=== PATIENT | female | born 1985 | race Caucasian/White ===

== ENCOUNTER 2019-07-05 08:39 | Emergency (ER) | payer OTHER ==
[2019-07-05 08:43] VITALS: BP 114/81; PULSE 90; RESP 18
[2019-07-05 09:02] VITALS: TEMP 98.5
[2019-07-05] MEDS ORDERED: ACET/COD 300 MG/30 MG STARTER PACK 6 TAB BTL PO STA (09:13)
--- NOTE | 2019-07-05 09:13 | ED ---
ENT HPI - General Chief complaint: Dental/Oral Stated complaint: Dental abscess Time Seen by Provider: 07/05/19 08:48 Source: patient, RN notes reviewed Mode of arrival: ambulatory Limitations: no limitations - History of Present Illness Initial comments: 34-year-old female presents emergency from chief complaint left-sided facial swelling, dental pain. Patient states that she's taken 3 doses amoxicillin. Patient does not improve. She is actually worsen. Patient reports no fevers or chills she states it is painful no pain medications currently. Patient has not follow-up with dentist. - Related Data Previous Rx's Medication Instructions Recorded Clindamycin HCl 300 mg PO Q6HR #40 cap 07/05/19 Ibuprofen [Motrin] 600 mg PO Q8HR PRN #30 tab 07/05/19 Allergies Allergy/AdvReac Type Severity Reaction Status Date / Time No Known Allergies Allergy Verified 07/05/19 08:43 Review of Systems ROS Statement: Those systems with pertinent positive or pertinent negative responses have been documented in the HPI. ROS Other: All systems not noted in ROS Statement are negative. Past Medical History Past Medical History: No Reported History History of Any Multi-Drug Resistant Organisms: None Reported Past Surgical History: Tubal Ligation Past Psychological History: No Psychological Hx Reported Smoking Status: Current every day smoker Past Alcohol Use History: None Reported Past Drug Use History: Marijuana General Exam Limitations: no limitations General appearance: alert, in no apparent distress Head exam: Present: atraumatic, normocephalic, normal inspection Eye exam: Present: normal appearance, PERRL, EOMI. Absent: scleral icterus, conjunctival injection, periorbital swelling ENT exam: Present: mucous membranes moist, TM's normal bilaterally, normal external ear exam. Absent: normal oropharynx (Dental fillings, cavities noted, no drainable abscess, left-sided facial swelling) Neck exam: Present: normal inspection, full ROM. Absent: tenderness, meningismus, lymphadenopathy Respiratory exam: Present: normal lung sounds bilaterally. Absent: respiratory distress, wheezes, rales, rhonchi, stridor Cardiovascular Exam: Present: regular rate, normal rhythm, normal heart sounds. Absent: systolic murmur, diastolic murmur, rubs, gallop, clicks Course Vital Signs 07/05/19 07/05/19 08:40 08:54 Temperature 98.0 F 98.5 F Pulse Rate 90 Respiratory 18 Rate Blood Pressure 114/81 O2 Sat by Pulse 98 Oximetry Medical Decision Making - Medical Decision Making Patient has left-sided dental infection, no drainable abscess. Patient will be started on clindamycin, given ibuprofen a starter pack of Tylenol with Codeine. Patient denies smoke with dental clinic return parameters were discussed. Disposition Clinical Impression: Dental abscess, Toothache Disposition: HOME SELF-CARE Condition: Stable Instructions (If sedation given, give patient instructions): Dental Abscess (ED) Additional Instructions: Please return to the Emergency Department if symptoms worsen or any other concerns.[facility] follow up with the [facility]. [facility] [place] [address]. Phone number for new patients or [phone] for existing patients. Prescriptions: Clindamycin HCl 300 mg PO Q6HR #40 cap Ibuprofen [Motrin] 600 mg PO Q8HR PRN #30 tab PRN Reason: Pain Is patient prescribed a controlled substance at d/c from ED?: No Referrals: None,Stated [Primary Care Provider] - 1-2 days Time of Disposition: 09:13
== END 2019-07-05 09:21 | disposition home or self-care (01) ==
LOC: EC 08:39
DX: K04.7 Periapical abscess without sinus (principal); F17.200 Nicotine dependence, unspecified, uncomplicated
CPT/HCPCS: 99283

== ENCOUNTER 2023-08-19 01:07 | Emergency (ER) | payer BC, OTHER ==
[2023-08-19 01:14] VITALS: BP 108/65; PULSE 62; RESP 20; TEMP 98.6
--- NOTE | 2023-08-19 01:43 | ED ---
ENT HPI - General Chief complaint: ENT Stated complaint: left ear pain Time Seen by Provider: 08/19/23 01:12 Source: patient, RN notes reviewed, old records reviewed Mode of arrival: ambulatory Limitations: no limitations - History of Present Illness Initial comments: This is a 38-year-old female to the ER for evaluation today. Patient has recent diagnosis of ear infection given steroids and antibiotics for the ER topical without improvement. Patient is today with persistent ear pain despite treatment. Diminished hearing left ear no other complaints no fevers no headache MD complaint: ear pain -: week(s) Location: L ear Quality: aching Consistency: constant Improves with: none Worsens with: none Associated Symptoms: hearing loss (Patient still can hear but hearing is diminished) - Related Data Previous Rx's Medication Instructions Recorded Ibuprofen [Motrin] 600 mg PO Q8HR PRN #30 tab 07/05/19 clindamycin HCL [Clindamycin HCl] 300 mg PO Q6HR #40 cap 07/05/19 Amoxic-Pot Clav 875-125Mg 1 tab PO Q12HR #20 tablet 08/19/23 [Augmentin 875-125] Loratadine-Pseudoeph 10-240 mg 1 tab PO DAILY #7 tab 08/19/23 [Claritin-D 24 Hour] Allergies Allergy/AdvReac Type Severity Reaction Status Date / Time No Known Allergies Allergy Verified 08/19/23 01:14 Review of Systems ROS Statement: Those systems with pertinent positive or pertinent negative responses have been documented in the HPI. ROS Other: All systems not noted in ROS Statement are negative. Past Medical History Past Medical History: No Reported History History of Any Multi-Drug Resistant Organisms: None Reported Past Surgical History: Tubal Ligation Past Psychological History: No Psychological Hx Reported Smoking Status: Current every day smoker, Vaper Past Alcohol Use History: None Reported Past Drug Use History: Marijuana General Exam Limitations: no limitations General appearance: alert, in no apparent distress Head exam: Present: atraumatic, normocephalic, normal inspection Eye exam: Present: normal appearance, PERRL, EOMI. Absent: scleral icterus, conjunctival injection, periorbital swelling ENT exam: Present: normal exam, mucous membranes moist. Absent: TM's normal bilaterally (Left ear effusion) Neck exam: Present: normal inspection. Absent: tenderness, meningismus, lymphadenopathy Respiratory exam: Present: normal lung sounds bilaterally. Absent: respiratory distress, wheezes, rales, rhonchi, stridor Cardiovascular Exam: Present: regular rate, normal rhythm, normal heart sounds. Absent: systolic murmur, diastolic murmur, rubs, gallop, clicks GI/Abdominal exam: Present: soft, normal bowel sounds. Absent: distended, tenderness, guarding, rebound, rigid Extremities exam: Present: normal inspection, full ROM, normal capillary refill. Absent: tenderness, pedal edema, joint swelling, calf tenderness Back exam: Present: normal inspection Neurological exam: Present: alert, oriented X3, CN II-XII intact Psychiatric exam: Present: normal affect, normal mood Skin exam: Present: warm, dry, intact, normal color. Absent: rash Course Vital Signs 08/19/23 01:12 Temperature 98.6 F Pulse Rate 62 Respiratory 20 Rate Blood Pressure 108/65 O2 Sat by Pulse 99 Oximetry - Reevaluation(s) Reevaluation #1: 08/19/23 01:41 Medical records reviewed Reevaluation #2: 08/19/23 01:41 Patient symptoms are improved Reevaluation #3: 08/19/23 01:41 Patient informed of results and questions answered Reevaluation #4: Was pt. sent in by a medical professional or institution (, PA, PHOTONICS ENGINEERING TECHNICIAN, urgent care, hospital, or longterm...) When possible be specific @ -no Did you speak to anyone other than the patient for history (EMS, parent, family, police, friend...)? What history was obtained from this source @ -no Did you review nursing and triage notes (agree or disagree)? Why? @ -agree Are old charts reviewed (outside hosp., previous admission, EMS record, old EKG, old radiological studies, urgent care reports/EKG's, longterm records)? Report findings @ -yes Differential Diagnosis (chest pain, altered mental status, abdominal pain women, abdominal pain men, vaginal bleeding, weakness, fever, dyspnea, syncope, headache, dizziness, GI bleed, back pain, seizure, CVA, palpatations, mental health, musculoskeletal)? @ -prior EKG interpreted by me (3pts min.). @ -no X-rays interpreted by me (1pt min.). @ -no CT interpreted by me (1pt min.). @ -no U/S interpreted by me (1pt. min.). @ -no What testing was considered but not performed or refused? (CT, X-rays, U/S, labs)? Why? @ -none What meds were considered but not given or refused? Why? @ -none Did you discuss the management of the patient with other professionals (professionals i.e. , PA, PHOTONICS ENGINEERING TECHNICIAN, lab, RT, psych nurse, case management social worker, hardwood floor installer, teacher, personal banking officer, protective services case worker)? Give summary @ -no Was smoking cessation discussed for >3mins.? @ -no Was critical care preformed (if so, how long)? @ -no Were there social determinants of health that impacted care today? How? (Homelessness, low income, unemployed, alcoholism, drug addiction, transportation, low edu. Level, literacy, decrease access to med. care, senior living, rehab)? @ -none Was there de-escalation of care discussed even if they declined (Discuss DNR or withdrawal of care, Hospice)? DNR status @ -no What co-morbidities impacted this encounter? (DM, HTN, Smoking, COPD, CAD, Cancer, CVA, ARF, Chemo, Hep., AIDS, mental health diagnosis, sleep apnea, morbid obesity)? @ -none Was patient admitted / discharged? Hospital course, mention meds given and route, prescriptions, significant lab abnormalities, going to OR and other pertinent info. @ - 38 female to ER for evaluation of significant ear pain left ear pain here in the ER pain is improved and patient can be discharged home Discharge Undiagnosed new problem with uncertain prognosis? @ -no Drug Therapy requiring intensive monitoring for toxicity (Heparin, Nitro, Insulin, Cardizem)? @ -no Were any procedures done? @ -no Diagnosis/symptom? @ -Left ear pain Acute, or Chronic, or Acute on Chronic? @ -Acute Uncomplicated (without systemic symptoms) or Complicated (systemic symptoms)? @ -Complicated Side effects of treatment? @ -no Exacerbation, Progression, or Severe Exacerbation? @ -exacerbation Poses a threat to life or bodily function? How? (Chest pain, [place], [place], pneumonia, PE, COPD, DKA, ARF, appy, cholecystitis, CVA, Diverticulitis, Homicidal, Suicidal, threat to staff... and all critical care pts) @ -no Medical Decision Making - Medical Decision Making 38 female to ER for evaluation of significant ear pain left ear pain here in the ER pain is improved and patient can be discharged home Disposition Clinical Impression: Otitis media, Otitis externa, Left ear pain Disposition: HOME SELF-CARE Condition: Good Instructions (If sedation given, give patient instructions): Barotitis Media (ED), Ear Infection (ED), Earache (ED) Prescriptions: Amoxic-Pot Clav 875-125Mg [Augmentin 875-125] 1 tab PO Q12HR #20 tablet Loratadine-Pseudoeph 10-240 mg [Claritin-D 24 Hour] 1 tab PO DAILY #7 tab Is patient prescribed a controlled substance at d/c from ED?: No Referrals: Bubba Young MD [STAFF PHYSICIAN] - 1-2 days Time of Disposition: 01:40
[2023-08-19] MEDS: traMADol 50 MG STARTER PACK 3 TAB BTL PO STA (01:49)
[2023-08-19] MEDS: IBUPROFEN 600 MG STARTER PACK 4 TAB BTL PO STA (01:50)
[2023-08-19] MEDS: traMADol 50 MG TAB PO STA (01:50)
[2023-08-19] MEDS: PSEUDOEPHEDRINE 30 MG TAB PO SCH (01:50)
[2023-08-19] MEDS: AMOXIC-POT CLAV 875-125MG 1 EACH TAB PO STA (01:51)
== END 2023-08-19 01:56 | disposition home or self-care (01) ==
LOC: EC 01:07
DX: H66.92 Otitis media, unspecified, left ear (principal); H60.92 Unspecified otitis externa, left ear; F17.290 Nicotine dependence, other tobacco product, uncomplicated; F12.90 Cannabis use, unspecified, uncomplicated
CPT/HCPCS: 99283